=== PATIENT | male | born 2000 | race Two or more races ===

== ENCOUNTER 2024-04-22 11:28 | Emergency (ER) | payer MEDICAID ==
[~2024-04-22] VITALS: Ht 172.7 cm; Wt 36.4 kg
[2024-04-22 11:48] VITALS: TEMP 98
[2024-04-22] MEDS: HYDROCODONE/ACETAMINOPHEN 5-325 MG TABLET PO ONE (15:03)
[2024-04-22 16:05] VITALS: BP 123/70; PULSE 75; RESP 16
== END 2024-04-22 17:04 | disposition home or self-care (01) ==
LOC: EMS 11:28
DX: S90.121A Contusion of right lesser toe(s) without damage to nail, initial encounter (principal); Z88.0 Allergy status to penicillin; W31.89XA Contact with other specified machinery, initial encounter; Y93.89 Activity, other specified; Y92.89 Other specified places as the place of occurrence of the external cause; Y99.8 Other external cause status
CPT/HCPCS: 99283